=== PATIENT | female | born 1945 | race Caucasian/White ===

== ENCOUNTER 2018-09-27 09:30 | Outpatient (REF) | payer OTHER, SELFPAY ==
[2018-09-27 13:40] LABS: Anion Gap 10.5 mmol/L (3-11); BUN 24 mg/dL (7-18); CO2 26.5 mmol/L (21.0-32.0); CREATININE 1.07 mg/dL (0.55-1.02); Calcium 9.7 mg/dL (8.5-10.1); Chloride 104 mmol/L (98-107); Estimated GFR 50.41 (mL/min/1.73m2); Glucose 100 mg/dL (70-100); Potassium 3.9 mmol/L (3.5-5.1); Sodium 141 mmol/L (136-145)
[2018-09-28 09:39] LABS: Hepatitis C Ab w Rflx HCV PCR Negative (NEGAT)
== END 2018-09-27 09:50 ==
LOC: NCHCN 09:30
PROVIDERS: PCP Family Medicine; Visit Provider Family Medicine
DX: I10 Essential (primary) hypertension (principal); Z11.59 Encounter for screening for other viral diseases
CPT/HCPCS: 80048; 86803

== ENCOUNTER 2018-10-10 00:46 | Outpatient (CLI) | payer OTHER, SELFPAY ==
--- NOTE | 2018-10-10 13:13 | DI.MAMMO_ITS ---
SYMPTOM/DIAGNOSIS: SCREENING, [facility], Z00.00. FAMILY H/O BREAST CA MAMMOGRAMS: Mammograms were interpreted according to the usual protocol including computer analysis with CAD system, tomosynthesis and C view imaging. Comparison is made with exams from [id number]. The breasts are composed of scattered fibroglandular densities. No suspicious masses or suspicious microcalcifications are seen. There has been no significant change. IMPRESSION: Category 1, negative mammogram. Yearly screening mammography is recommended. [facility] [[email or web address]] ASSESSMENT OF FINDINGS: Negative. Category 1. Patient will receive a letter notifying them of these results. BI-RADS category B. There are scattered areas of fibroglandular density.
== END 2018-10-10 01:06 ==
PROVIDERS: PCP Family Medicine; Visit Provider Family Medicine
DX: Z12.31 Encounter for screening mammogram for malignant neoplasm of breast (principal); Z80.3 Family history of malignant neoplasm of breast
CPT/HCPCS: 77063; 77067

== ENCOUNTER 2019-03-04 17:09 | Emergency (ER) | payer OTHER, SELFPAY ==
[2019-03-04] VITALS (42 sets, daily range): BP systolic 36–138; BP diastolic 28–58; PULSE 71–116; RESP 14–38; TEMP 36.4–36.9; O2SAT 88–97
--- NOTE | 2019-03-04 17:32 | ED.GENADUL_ITS ---
Discharge Plan Disposition Patient Disposition: HOME Condition: Stable Discharge Details Chief Complaint: Nausea/Vomit/Diar Clinical Impression: Nausea & vomiting, Cough, Hypokalemia Primary Care Provider: Dave Martin ED Provider: Salvatore Frias Home Meds and New Rx's Prescriptions: New doxycycline hyclate 100 mg tablet 100 mg PO BID Qty: 14 RF: 0 ondansetron 4 mg tablet,disintegrating 4 mg PO QID PRN (Reason: nausea and vomiting) Qty: 30 RF: 0 Continued hydrochlorothiazide 25 MG tablet 25 mg PO DAILY RF: 0 olmesartan [Benicar] 40 MG tablet 40 mg PO DAILY RF: 0 Gaviscon 1 EACH tablet,chewable 2 ea PO PRN PRNRF: 0 loperamide 2 mg Capsule 4 mg PO Q1-4H PRNRF: 0 Discharge Instructions Instructions: Hypokalemia (ED), Acute Nausea and Vomiting (ED) Additional Instructions: follow up with your primary care provider within 1 week for follow up if you have persistent vomit despite medications, severe pain or feel more ill return to the emergency department Medical Decision Making 73 yo female with hx of htn who comes in with cc of diarrhea since and had n/v yesterday. No vomit today and denies any abdominal pain, chest pain or sob. She denies recent travel or new foods. She is in no distress on exam but appears dehydrated on exam and is orthostatic. She has no addominal tenderness on exam or distention so doubt sbo, cholecystitis or other surgical pathology and do not feel imaging indicated. no chest pain pressure or sob so do not feel acs w/u inddicated .I suspect a gastroenteritis given her symptoms, will hydrated, tx her symptoms and check electrolytes and reassess pt remains stable and feels much better. her labs show K of 2.5 likely from the vomit, will replete and recheck. Her lfts are also elevated, still has no abodminal tenderness so do not feel imaging at this time indicated mergently. will send hepatitis panel and tick panel. She is tolerating PO so if K is correcting will likely d/c K is now over 3 and she still feels well. She is HD stable, 95% on room air with stable vital signs. She does note a cough and with her body aches will cover for possible atypica pathogens sugh as legionella with doxy, and advised f/u with pcp and return precautions given Differential Diagnosis food illness gastroenteritis, colitis Lab Data Lab results reviewed: Yes I reviewed the patient's lab results. HPI General Mode of arrival: ambulatory . Date/Time Provider Initiated Documentation: 03/04/19 17:13 . Limitations to Documentation: no limitations . Information obtained by: patient . History of Present Illness 73 year old F presents to the emergency department with the chief complaint of diarrhea, described as moderate, Patient started experiencing this day(s) (3) and it has been constant. No relieving factors improve symptom(s), No exacerbating factors reported . Patient did receive the following treatments prior to arrival, none Related Data Home Medications Medication Instructions Recorded Confirmed hydrochlorothiazide 25 mg PO DAILY tab-cap NS 08/27/13 03/04/19 olmesartan [Benicar] 40 mg PO DAILY tab-cap NS 08/27/13 03/04/19 Gaviscon 2 ea PO PRN PRN 09/15/17 03/04/19 doxycycline hyclate 100 mg PO BID #14 tab 03/04/19 loperamide 4 mg PO Q1-4H PRN 03/04/19 03/04/19 ondansetron 4 mg PO QID PRN #30 tab 03/04/19 Previous Rx's Medication Instructions Recorded doxycycline hyclate 100 mg PO BID #14 tab 03/04/19 ondansetron 4 mg PO QID PRN #30 tab 03/04/19 Allergies Allergy/AdvReac Type Severity Reaction Status Date / Time No Known Allergies Allergy Unverified 03/04/19 17:21 General Stated Complaint: Nausea/Vomit/Diar EALRENE: 3 Review of Systems Review of Systems All systems reviewed & are unremarkable except as noted in HPI and below Constitutional Denies chills, Denies fever(s) and Denies weakness Cardiovascular Denies chest pain and Denies dyspnea Respiratory Denies cough and Denies dyspnea Gastrointestinal Denies abdominal pain Genitourinary Denies dysuria Neurologic Denies weakness PFSH Social History Smoking/Tobacco Use Status: Never Alcohol Intake: never Drug use: Never Do you feel safe at home: Yes Do you feel safe in your relationship?: Yes Exam Const General: no acute distress Orientation: alert HENMT Head: normal to inspection Ears: external ears normal General nose exam: external nose normal Mouth: moist mucous membranes Eyes General: appearance normal, both eyes and all related structures Neck Neck: normal visual inspection Resp Effort & Inspection: normal respiratory effort and able to speak in complete sentences Cardio Rate: regular rate Skin General skin exam: no rashes or lesions noted Neuro General: alert and oriented x3 Extrem General: normal to inspection Psych Mental Status: mental status grossly normal Course Vital Signs Temperature 36.9 C 03/04/19 17:13 Pulse 85 03/04/19 17:13 Respiratory Rate 20 03/04/19 17:13 Blood Pressure 138/52 L 03/04/19 17:13 Pulse Oximetry 95 03/04/19 17:13 Temperature 36.9 C 03/04/19 17:13 Temperature Source Oral 03/04/19 17:13 Pulse 93 H 03/04/19 17:17 Respiratory Rate 03/04/19 17:13 Respiratory Effort Non-Labored 03/04/19 17:16 Blood Pressure 138/52 L 03/04/19 17:17 Blood Pressure Position Supine 03/04/19 17:13 Pulse Oximetry 95 03/04/19 17:13 Oxygen Delivery Method Room Air 03/04/19 17:13 Oxygen Flow Rate 0 03/04/19 17:13 Pain Level 5 03/04/19 17:13
[2019-03-04 17:46] LABS: Abs Immature Grans 0.01 k/cumm (0.0-0.09); Absolute Basophil Count 0.01 k/cumm (0.0-0.2); Absolute Lymphocyte Count 1.54 k/cumm (1.2-3.4); Absolute Monocyte Count 0.85 k/cumm (0.11-0.7); Absolute Neutrophil Count 5.33 k/cumm (1.2-6.7); Basophils % 0.1; HCT 42.5 % (36.0-46.0); HGB 14.7 g/dL (12.0-15.5); Immature Grans % 0.1; Lymphocytes % 19.9; Mean Corp. HGB Concentration 34.6 g/dL (32.0-36.0); Mean Corpuscular Hemoglobin 29.6 pg (27.0-33.0); Mean Corpuscular Volume 85.5 fL (80-95); Neutrophils % 68.9; Platelet Count 201 x1000/uL (130-400); RBC 4.97 m/cumm (4.00-5.20); RBC Distribution Width 13.7 % (11.7-14.6); White Blood Cell Count 7.74 k/cumm (4.4-10.8)
[2019-03-04 17:58] LABS: PTT Activated 25.4 sec (21.0-31.4); Prothrombin Time 9.6 sec (9.3-11.0)
[2019-03-04] MEDS: Ondansetron 4 MG/2 ML VIAL IVP (17:59)
[2019-03-04] MEDS: Normal Saline 1,000 ML 1000 ML IV (17:59)
[2019-03-04 18:04] LABS: ALT 137 U/L (12-78); AST 290 U/L (15-37); Albumin 3.5 g/dL (3.4-5.0); Alkaline Phosphatase 349 U/L (46-116); Anion Gap 12.6 mmol/L (3-11); BUN 20 mg/dL (7-18); Bilirubin, Total 1.1 mg/dL (0.2-1.0); CO2 24.4 mmol/L (21.0-32.0); CREATININE 1.13 mg/dL (0.55-1.02); Calcium 8.4 mg/dL (8.5-10.1); Chloride 96 mmol/L (98-107); Glucose 112 mg/dL (70-100); Lipase 159 U/L (73-393); Magnesium 1.9 mg/dL (1.8-2.4); Sodium 133 mmol/L (136-145); Total Protein 6.9 g/dL (6.4-8.2)
[2019-03-04 18:08] LABS: Potassium 2.5 mmol/L (3.5-5.1)
[2019-03-04] MEDS: POTASSIUM CHLORIDE 10 MEQ/100 ML BAG 100 MEQ IVPB (18:25)
[2019-03-04] MEDS: Potassium Chloride 10 MEQ CAPCR 80 MEQ PO (18:26)
[2019-03-04 20:56] LABS: Anion Gap 10.3 mmol/L (3-11); BUN 18 mg/dL (7-18); CO2 25.7 mmol/L (21.0-32.0); CREATININE 0.92 mg/dL (0.55-1.02); Calcium 7.9 mg/dL (8.5-10.1); Chloride 98 mmol/L (98-107); Estimated GFR 59.84 (mL/min/1.73m2); Glucose 122 mg/dL (70-100); Potassium 3.2 mmol/L (3.5-5.1); Sodium 134 mmol/L (136-145)
[2019-03-04] MEDS: Doxycycline Hyclate 100 MG CAP PO (21:10)
[2019-03-04] MEDS: Ondansetron O.D.T. 4 MG TABEF PO (21:29)
[2019-03-06 10:57] LABS: Lyme Ab w Rflx to Lyme Confirm Negative
[2019-03-06 13:42] LABS: Hepatitis A Antibody IgM Negative (NEGAT); Hepatitis B Core Antibody Negative (NEGAT); Hepatitis B surface Ag Negative (NEGAT); Hepatitis C Ab w Rflx HCV PCR Negative (NEGAT)
[2019-03-07 22:00] LABS: Anaplasma phagocytophilum Negative (Negative); B. miyamotoi PCR Negative (Negative); Babesia divergens/MO-1 Negative (Negative); Babesia duncani Negative (Negative); Babesia microti Negative (Negative); Ehrlichia chaffeensis Negative (Negative); Ehrlichia ewingii/canis Negative (Negative); Ehrlichia muris eauclairensis Negative (Negative)
== END 2019-03-04 21:38 | disposition home or self-care (01) ==
PROVIDERS: Emergency Provider Emergency Medicine; PCP Family Medicine
DX: R11.2 Nausea with vomiting, unspecified (principal); R19.7 Diarrhea, unspecified; E87.6 Hypokalemia; R05 Cough; I10 Essential (primary) hypertension; M79.10 Myalgia, unspecified site
CPT/HCPCS: 36415; 80048; 80053; 83690; 86704; 86709; 86803; 87340; 87798; 87880; 96361; 96365; 96375; 99284; 83735; 85025; 85610; 85730; 86618; 87081; J3480

== ENCOUNTER 2019-03-07 14:06 | Outpatient (REF) | payer OTHER, SELFPAY ==
[2019-03-07 18:34] LABS: ALT 94 U/L (12-78); AST 67 U/L (15-37); Albumin 3.6 g/dL (3.4-5.0); Alkaline Phosphatase 336 U/L (46-116); Anion Gap 9.6 mmol/L (3-11); BUN 14 mg/dL (7-18); Bilirubin, Total 0.8 mg/dL (0.2-1.0); CO2 27.4 mmol/L (21.0-32.0); CREATININE 0.91 mg/dL (0.55-1.02); Calcium 9.2 mg/dL (8.5-10.1); Chloride 99 mmol/L (98-107); Glucose 97 mg/dL (70-100); Potassium 3.3 mmol/L (3.5-5.1); Sodium 136 mmol/L (136-145); Total Protein 6.6 g/dL (6.4-8.2)
[2019-03-12 10:47] LABS: Hepatitis A Antibody IgM Negative (NEGAT); Hepatitis B Core Antibody Negative (NEGAT); Hepatitis B surface Ag Negative (NEGAT); Hepatitis C Ab w Rflx HCV PCR Negative (NEGAT)
== END 2019-03-07 14:26 ==
LOC: NCHCN 14:06
PROVIDERS: PCP Family Medicine; Visit Provider Family Medicine
DX: R74.8 Abnormal levels of other serum enzymes (principal)
CPT/HCPCS: 80053; 86704; 86709; 86803; 87340

== ENCOUNTER 2019-10-03 10:17 | Outpatient (REF) | payer OTHER, SELFPAY ==
[2019-10-03 14:04] LABS: ALT 22 U/L (14-59); AST 23 U/L (15-37); Albumin 4.1 g/dL (3.4-5.0); Alkaline Phosphatase 64 U/L (46-116); BUN 27 mg/dL (7-18); Bilirubin, Total 0.8 mg/dL (0.2-1.0); CREATININE 1.08 mg/dL (0.55-1.02); Calcium 9.3 mg/dL (8.5-10.1); Chloride 105 mmol/L (98-107); Estimated GFR 49.73 (mL/min/1.73m2); Glucose 96 mg/dL (74-106); Potassium 3.7 mmol/L (3.5-5.1); Sodium 143 mmol/L (136-145)
== END 2019-10-03 10:37 ==
LOC: NCHCN 10:17
PROVIDERS: PCP Family Medicine; Visit Provider Family Medicine
DX: R74.8 Abnormal levels of other serum enzymes (principal)
CPT/HCPCS: 80053

== ENCOUNTER 2020-10-28 01:10 | Outpatient (CLI) | payer OTHER, SELFPAY ==
--- NOTE | 2020-10-28 | DI.MAMMO_ITS ---
EXAM: MAMMO SCREENING CLINICAL HISTORY: SCREENING, Z12.39 TECHNIQUE: Mammograms were interpreted according to the usual protocol including computer analysis w [employer] CAD system, tomosynthesis and C-view imaging. COMPARISON: 2011 through 2018 FINDINGS: The breasts are composed of scattered fibroglandular densities, Breast Density category B. No suspicious masses or suspicious microcalcifications are seen. No skin thickening or abnormal axillary lymph nodes are seen. There has been no significant change from prior exams. IMPRESSION: BI-RADS Category 1, Negative mammogram Yearly screening mammography is recommended. Breast Density - Category B, scattered fibroglandular densities. A negative radiographic report should not delay biopsy if a dominant or clinically suspicious mass is present. Up to ten percent of cancers are not identified on mammography. A negative report may reinforce clinical impression. Adenosis and dense breasts may obscure an underlying neoplasm. False positive reports average 6 to 10%. Patient will receive a letter notifying them of these results.
== END 2020-10-28 01:11 ==
PROVIDERS: PCP Family Medicine; Visit Provider Family Medicine
DX: Z12.31 Encounter for screening mammogram for malignant neoplasm of breast (principal)
CPT/HCPCS: 77063; 77067

== ENCOUNTER 2021-07-14 09:51 | Outpatient (REF) | payer MEDICARE, SELFPAY ==
[2021-07-15 00:13] LABS: Calcium 9.9 mg/dL (8.5-10.1); Glucose 104 mg/dL (74-106)
[2021-07-15 00:14] LABS: Anion Gap 9.3 mmol/L (3-11); BUN 25 mg/dL (7-18); CO2 27.7 mmol/L (21.0-32.0); Chloride 106 mmol/L (98-107); Estimated GFR 54.05 (mL/min/1.73m2); Potassium 3.9 mmol/L (3.5-5.1); Sodium 143 mmol/L (136-145)
== END 2021-07-14 09:52 | disposition home or self-care (01) ==
LOC: NCHCN 09:51
PROVIDERS: PCP Family Medicine; Visit Provider Family Medicine
DX: I10 Essential (primary) hypertension (principal)
CPT/HCPCS: 80048

== ENCOUNTER 2022-07-23 14:54 | Outpatient (REF) | payer MEDICARE, SELFPAY ==
[2022-07-23 15:37] LABS: ALT 27 U/L (14-59); AST 28 U/L (15-37); Albumin 4.2 g/dL (3.4-5.0); Alkaline Phosphatase 80 U/L (46-116); Anion Gap 11.2 mmol/L (3-11); BUN 26 mg/dL (7-18); CO2 26.8 mmol/L (21.0-32.0); CREATININE 1.3 mg/dL (0.55-1.02); Calcium 10.3 mg/dL (8.5-10.1); Chloride 101 mmol/L (98-107); Estimated GFR 42.62 (mL/min/1.73m2); Glucose 107 mg/dL (74-106); Potassium 3.9 mmol/L (3.5-5.1); Sodium 139 mmol/L (136-145); Total Protein 7.5 g/dL (6.4-8.2)
== END 2022-07-23 14:55 | disposition home or self-care (01) ==
LOC: NCHCN 14:54
PROVIDERS: PCP Family Medicine; Visit Provider Family Medicine
DX: I10 Essential (primary) hypertension (principal); T58.2X1A Toxic effect of carbon monoxide from incomplete combustion of other domestic fuels, accidental (unintentional), initial encounter; Z00.00 Encounter for general adult medical examination without abnormal findings
CPT/HCPCS: 80053

== ENCOUNTER 2022-10-01 16:42 | Outpatient (REF) | payer MEDICARE, SELFPAY ==
[2022-10-01 17:10] LABS: Vitamin D 25 Total 34.3 ng/mL (30-100)
[2022-10-01 17:40] LABS: Albumin 4.2 g/dL (3.4-5.0); Anion Gap 11.1 mmol/L (3-11); BUN 20 mg/dL (7-18); CO2 27.9 mmol/L (21.0-32.0); Calcium 10.1 mg/dL (8.5-10.1); Chloride 103 mmol/L (98-107); Estimated GFR 58.39 (mL/min/1.73m2); Glucose 94 mg/dL (74-106); Potassium 3.2 mmol/L (3.5-5.1); Sodium 142 mmol/L (136-145)
== END 2022-10-01 16:43 | disposition home or self-care (01) ==
LOC: NCHCN 16:42
PROVIDERS: PCP Family Medicine; Visit Provider Family Medicine
DX: E55.9 Vitamin D deficiency, unspecified (principal); R00.2 Palpitations; R53.83 Other fatigue; K90.0 Celiac disease; N28.9 Disorder of kidney and ureter, unspecified
CPT/HCPCS: 80048; 82306; 82040

== ENCOUNTER 2022-12-23 16:33 | Outpatient (REF) | payer MEDICARE, SELFPAY ==
--- NOTE | 2022-12-23 15:45 | SKI_PTH ---
PATIENT: Leola Mccabe LOC: [facility] U#:[id number] AGE/SX: 77/F ROOM: RE12/23/[address]: Dave Martin : 1945 BED: DIS: 12/23/2022 SPEC #: [id number] RECD: 12/23/22 18:22 STATUS: ZHANG REMissy #: [id number] KEVIN: 12/23/22 15:[address]: Dave Martin DEPT: Surgical Specimen RECD BY: Germaine Dennis Tissues: 1 - SKIN BIOPSY(SHAVE/PUNCH) Procedures: SKIN LEVEL 4 Comments: [id number]
== END 2022-12-23 16:34 | disposition home or self-care (01) ==
LOC: NCHCN 16:33
PROVIDERS: PCP Family Medicine; Visit Provider Family Medicine
DX: C44.712 Basal cell carcinoma of skin of right lower limb, including hip (principal)
CPT/HCPCS: 88305

== ENCOUNTER 2023-06-21 13:39 | Outpatient (REF) | payer MEDICARE, SELFPAY ==
[2023-06-21 16:22] LABS: Albumin 4.3 g/dL (3.4-5.0); Anion Gap 12.2 mmol/L (3-11); BUN 17 mg/dL (7-18); CO2 23.8 mmol/L (21.0-32.0); CREATININE 0.9 mg/dL (0.55-1.02); Calcium 10.2 mg/dL (8.5-10.1); Chloride 103 mmol/L (98-107); Estimated GFR 65.84 (mL/min/1.73m2); Glucose 105 mg/dL (74-106); Potassium 4.2 mmol/L (3.5-5.1); Sodium 139 mmol/L (136-145)
== END 2023-06-21 13:40 | disposition home or self-care (01) ==
LOC: NCHCN 13:39
PROVIDERS: PCP Family Medicine; Visit Provider Family Medicine
DX: I10 Essential (primary) hypertension (principal); N28.9 Disorder of kidney and ureter, unspecified; E87.6 Hypokalemia; E83.52 Hypercalcemia
CPT/HCPCS: 80048; 82040; 83735

== ENCOUNTER 2023-10-06 12:26 | Outpatient (REF) | payer MEDICARE, SELFPAY ==
[2023-10-06 17:01] LABS: ALT 31 U/L (14-59); AST 32 U/L (15-37); Albumin 4.3 g/dL (3.4-5.0); Alkaline Phosphatase 76 U/L (46-116); Anion Gap 14.5 mmol/L (3-11); BUN 18 mg/dL (7-18); CO2 23.5 mmol/L (21.0-32.0); CREATININE 0.6 mg/dL (0.55-1.02); Calcium 10.5 mg/dL (8.5-10.1); Chloride 104 mmol/L (98-107); Estimated GFR 92.39 (mL/min/1.73m2); Glucose 85 mg/dL (74-106); Potassium 4.5 mmol/L (3.5-5.1); Sodium 142 mmol/L (136-145); Total Protein 7.1 g/dL (6.4-8.2)
[2023-10-11 02:12] LABS: 25-Hydroxy D Total 41 ng/mL; 25-Hydroxy D2 <4.0 ng/mL; 25-Hydroxy D3 41 ng/mL
== END 2023-10-06 12:27 | disposition home or self-care (01) ==
LOC: NCHCN 12:26
PROVIDERS: PCP Family Medicine; Visit Provider Student in an Organized Health Care Education/Training Program
DX: E55.9 Vitamin D deficiency, unspecified (principal); I10 Essential (primary) hypertension
CPT/HCPCS: 80053; 82306

== ENCOUNTER 2023-10-27 01:47 | Outpatient (CLI) | payer MEDICARE, SELFPAY ==
[2023-10-27 13:14] LABS: Calcium 10.1 mg/dL (8.5-10.1)
[2023-10-27 21:20] LABS: Ionized Calcium 1.22 mmol/L (1.14-1.35)
[2023-10-27 22:01] LABS: Parathyroid Hormone,Intact 89 pg/mL (19-88)
== END 2023-10-27 01:48 | disposition home or self-care (01) ==
LOC: LBO 01:47
PROVIDERS: PCP Family Medicine; Visit Provider Student in an Organized Health Care Education/Training Program
DX: E83.52 Hypercalcemia (principal)
CPT/HCPCS: 36415; 82310; 82330; 83970

== ENCOUNTER 2023-12-27 14:45 | Outpatient (REF) | payer MEDICARE, SELFPAY ==
[2023-12-27 15:52] LABS: ALT 41 U/L (14-59); AST 32 U/L (15-37); Albumin 4.4 g/dL (3.4-5.0); Alkaline Phosphatase 81 U/L (46-116); Anion Gap 12.9 mmol/L (3-11); BUN 24 mg/dL (7-18); Bilirubin, Total 0.8 mg/dL (0.2-1.0); CO2 23.1 mmol/L (21.0-32.0); CREATININE 0.9 mg/dL (0.55-1.02); Calcium 10.1 mg/dL (8.5-10.1); Chloride 105 mmol/L (98-107); Estimated GFR 65.44 (mL/min/1.73m2); Glucose 102 mg/dL (74-106); Potassium 4.4 mmol/L (3.5-5.1); Sodium 141 mmol/L (136-145); Total Protein 7.1 g/dL (6.4-8.2)
[2023-12-27 22:39] LABS: Parathyroid Hormone,Intact 61 pg/mL (19-88)
== END 2023-12-27 14:46 | disposition home or self-care (01) ==
LOC: NCHCN 14:45
PROVIDERS: PCP Family Medicine; Visit Provider Student in an Organized Health Care Education/Training Program
DX: E83.52 Hypercalcemia (principal)
CPT/HCPCS: 80053; 82330; 83970

== ENCOUNTER → 2024-01-12 00:31 | Outpatient (CLI) | payer MEDICARE, SELFPAY ==
--- NOTE | 2024-01-12 | DI.DEXA_ITS ---
Exam(s) XR DEXA BONE DENSITY W/WO SEA EXAM: XR DEXA BONE DENSITY W/WO SEA CLINICAL HISTORY: Z78.0 Asymptomatic menopausal state, 3/4 loss TECHNIQUE: COMPARISON: DX DEXA BONE DENSITY WITH SEA from 07/11/2014 FINDINGS: Lateral Spine Image: There is grade 1 anterolisthesis of L4 on L5. No definite compression fracture deformities are seen. Left hip: Total T-Score: -0.7. This compares to 0.2 on the prior examination. Total Z-Score: 1.3 T- and Z-scores: No evidence of osteoporosis. Lumbar Spine: Total T-Score: -0.6. This compares to 0.1 on the prior examination. Total Z-Score: 2.0 T- and Z-scores: There is no evidence of osteoporosis. IMPRESSION: No evidence of osteoporosis.
== END ==
PROVIDERS: PCP Family Medicine; Visit Provider Student in an Organized Health Care Education/Training Program
DX: Z78.0 Asymptomatic menopausal state (principal); Z12.31 Encounter for screening mammogram for malignant neoplasm of breast
CPT/HCPCS: 77080

== ENCOUNTER 2024-06-29 13:31 | Outpatient (REF) | payer MEDICARE, SELFPAY ==
[2024-06-29 15:16] LABS: ALT 32 U/L (14-59); AST 27 U/L (15-37); Albumin 4.3 g/dL (3.4-5.0); Alkaline Phosphatase 85 U/L (46-116); Anion Gap 12.7 mmol/L (3-11); BUN 21 mg/dL (7-18); Bilirubin, Total 0.92 mg/dL (0.2-1.0); CO2 23.3 mmol/L (21.0-32.0); CREATININE 0.8 mg/dL (0.55-1.02); Calcium 10.4 mg/dL (8.5-10.1); Chloride 105 mmol/L (98-107); Estimated GFR 75.37 (mL/min/1.73m2); Glucose 98 mg/dL (74-106); Potassium 4.3 mmol/L (3.5-5.1); Sodium 141 mmol/L (136-145); Total Protein 7.1 g/dL (6.4-8.2)
== END 2024-06-29 13:32 | disposition home or self-care (01) ==
LOC: NCHCN 13:31
PROVIDERS: PCP Student in an Organized Health Care Education/Training Program; Visit Provider Student in an Organized Health Care Education/Training Program
DX: E83.52 Hypercalcemia (principal); I10 Essential (primary) hypertension
CPT/HCPCS: 80053; 83735

== ENCOUNTER 2025-01-01 12:02 | Outpatient (REF) | payer MEDICARE, SELFPAY ==
[2025-01-01 15:59] LABS: ALT 38 U/L (14-59); AST 26 U/L (15-37); Albumin 4.1 g/dL (3.4-5.0); Alkaline Phosphatase 87 U/L (46-116); Anion Gap 12.4 mmol/L (3-11); BUN 21 mg/dL (7-18); Bilirubin, Total 0.8 mg/dL (0.2-1.0); CO2 23.6 mmol/L (21.0-32.0); Calcium 10.4 mg/dL (8.5-10.1); Chloride 106 mmol/L (98-107); Estimated GFR 57.31 (mL/min/1.73m2); Glucose 119 mg/dL (74-106); Potassium 4.4 mmol/L (3.5-5.1); Sodium 142 mmol/L (136-145); Total Protein 6.9 g/dL (6.4-8.2)
== END 2025-01-01 12:03 | disposition home or self-care (01) ==
LOC: NCHCN 12:02
PROVIDERS: PCP Student in an Organized Health Care Education/Training Program; Visit Provider Student in an Organized Health Care Education/Training Program
DX: I10 Essential (primary) hypertension (principal)
CPT/HCPCS: 80053

== ENCOUNTER 2025-01-09 01:54 | Outpatient (CLI) | payer MEDICARE, SELFPAY ==
[2025-01-09 14:18] LABS: Vitamin D 25 Total 32 ng/mL (30-100)
[2025-01-10 17:37] LABS: Ionized Calcium 1.26 mmol/L (1.14-1.35)
[2025-01-10 18:41] LABS: Parathyroid Hormone,Intact 94 pg/mL (19-88)
== END 2025-01-09 01:55 | disposition home or self-care (01) ==
LOC: LBO 01:54
PROVIDERS: PCP Student in an Organized Health Care Education/Training Program; Visit Provider Student in an Organized Health Care Education/Training Program
DX: E83.52 Hypercalcemia (principal)
CPT/HCPCS: 36415; 82306; 82330; 83970

== ENCOUNTER 2025-02-08 00:42 | Outpatient (CLI) | payer MEDICARE, SELFPAY ==
--- NOTE | 2025-02-08 | DI.RAD_ITS ---
Exam(s) XR SHOULDER LT COMPLETE 2+V EXAM: XR SHOULDER LT COMPLETE 2+V CLINICAL HISTORY: M25.512 Pain in left shoulder, G89.29 Other chronic pain. TECHNIQUE: 2D digital imaging was performed. COMPARISON: No exams were available for comparison FINDINGS: Six views No evidence of fracture or dislocation nor abnormal soft tissue calcifications. Main finding here is severe advanced [id number] degenerative narrowing of the glenohumeral joint. There also opposing osteophytes on the inferior articular surface of the humeral head and inferior os seous glenoid. On the axial view there is noted anteriorly and 8 x 7 mm calcific density projected anterior to the h umeral head and just lateral to the coracoid process. There is slight widening of the AC joint noted. Possibly related to trauma or possibly postsurgical. The distance between the articular surfaces of the AC joint is approximately 9 mm. Clavicle otherw ise appears unremarkable. 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 Widened AC joint. There is also an 8 x 7 millimeter calcific density seen anteriorly on the axial view. DATA REPOSITORY: RADIATION DOSE DELIVERED:
== END 2025-02-08 01:02 ==
LOC: DI 00:42
PROVIDERS: PCP Student in an Organized Health Care Education/Training Program; Visit Provider Student in an Organized Health Care Education/Training Program
DX: M19.012 Primary osteoarthritis, left shoulder (principal)
CPT/HCPCS: 73030

== ENCOUNTER 2025-03-01 00:19 | Outpatient (CLI) | payer MEDICARE, SELFPAY ==
--- NOTE | 2025-03-01 | DI.MAMMO_ITS ---
Exam(s) MAMMO SCREENING EXAM: MAMMO SCREENING CLINICAL HISTORY: SCREENING, Z12.31 TECHNIQUE: Bilateral full field digital CC and MLO mammographic images were obtained with 3D tomosynthesis and utilizing computer aided detection (CAD). COMPARISON: Comparison is made with prior examinations. FINDINGS: Masses/Architectural Distortion: No suspicious masses or areas of architectural distortion are present. Microcalcifications: No suspicious pleomorphic-type are seen. Skin Thickening/Nipple Retraction: None. IMPRESSION: 1. No significant interval change with no specific features of malignancy noted. 2. Unless there is more urgent need, screening mammography is recommended, as per [place] [employer] guidelines. BI-RADS Category 1 - Negative Breast Density - Category B - There are scattered areas of fibroglandular density. Breast density Category C or D implies that the patient has dense breast tissue. Dense breast tissue can make it harder to find cancer on a mammogram. Dense breast tissue is also associated with an increased risk of breast cancer. This information about the result of the mammogram report was provided to the patient to raise their awareness. Use this report when you speak with the patient about their risks for breast cancer, which includes their family history. At that time, you may recommend additional screening tests (Ultrasound or MRI) as these tests may add significant information. A negative radiographic report should not delay biopsy if a dominant or clinically suspicious mass is present. Up to ten percent of cancers are not identified on mammography. A negative report may reinforce clinical impression. Adenosis and dense breasts may obscure an underlying neoplasm. False positive reports average 6 to 10%. Patient will receive a letter notifying them of these results.
== END 2025-03-01 00:39 ==
LOC: DI 00:19
PROVIDERS: PCP Student in an Organized Health Care Education/Training Program; Visit Provider Student in an Organized Health Care Education/Training Program
DX: Z12.31 Encounter for screening mammogram for malignant neoplasm of breast (principal); R92.323 Mammographic fibroglandular density, bilateral breasts
CPT/HCPCS: 77063; 77067